=== PATIENT | female | born 1985 | race African-American/Black ===

== ENCOUNTER 2025-02-12 18:52 | Emergency (ER) | payer BC ==
[2025-02-12 19:45] LABS: #Basophils 0.08 10x3/uL (0.0-0.2); #Eosinophils 0.14 10x3/uL (0.0-0.5); #Monocytes 0.79 10x3/uL (0.0-1.1); #Neutrophils 6.19 10x3/uL (1.5-8.4); %Basophils 0.7 % (0.0-2.0); %Eosinophils 1.2 % (0.0-6.0); %Lymphocytes 36.8 % (18.0-47.0); %Monocytes 6.9 % (0.0-10.0); %Neutrophils 54.0 % (40.0-75.0); Hematocrit 31.5 % (34.9-44.5); Hemoglobin 10.3 g/dL (12.0-15.5); Mean Corpuscular Hemoglobin 25.9 pg (27.0-33.0); Mean Corpuscular Volume 79.3 fL (81.6-98.3); Platelet Count 411 10x3/uL (150-450); Red Blood Cell (RBC) Count 3.97 10x6/uL (3.90-5.03); White Blood Cell (WBC) Count 11.48 10x3/uL (3.5-10.5)
[2025-02-12 19:49] LABS: ALT (SGPT) 17 U/L (Less than 34); AST (SGOT) 21 U/L (11-34); Albumin 3.8 g/dL (3.1-4.5); Alkaline Phosphatase 112 U/L (40-110); Anion Gap 13 mmol/L (10-20); BUN (Urea Nitrogen) 10 mg/dL (7.0-18.7); Bilirubin, Total 0.2 mg/dL (0.3-1.2); Calc. Creatinine Clearance 0 mL/min (70-130); Calcium 8.7 mg/dL (7.8-10.44); Carbon Dioxide 18 mmol/L (22-29); Chloride 112 mmol/L (98-107); Globulin 4.1 g/dL (2.4-3.5); Glucose 83 mg/dL (70-105); Potassium 3.6 mmol/L (3.5-5.1); Sodium 139 mmol/L (136-145)
[2025-02-12 19:56] LABS: Troponin I 0.016 ng/mL (< 0.028)
[2025-02-12 20:06] LABS: Platelet Adequacy Comment Appears Increased
[2025-02-12 21:43] LABS: Troponin I Less than 0.010 ng/mL (< 0.028)
== END 2025-02-12 22:07 | disposition home or self-care (01) ==
LOC: CSHERS 18:52
DX: R07.89 Other chest pain (principal); I10 Essential (primary) hypertension
CPT/HCPCS: 36415; 71045; 80053; 83880; 84484; 85025; 93005